=== PATIENT | female | born 1995 | race Caucasian/White ===

== ENCOUNTER 2017-02-20 10:49 | Emergency (ER) | payer MEDICAID ==
[~2017-02-20] VITALS: Ht 177.8 cm; Wt 175.5 kg
[2017-02-20 13:19] VITALS: BP 158/72
== END 2017-02-20 16:41 | disposition left against medical advice (07) ==
LOC: ER 10:49
DX: R51 Headache (principal); Z53.21 Procedure and treatment not carried out due to patient leaving prior to being seen by health care provider